=== PATIENT | male | born 1975 | race American Indian/Alaskan Native ===

== ENCOUNTER 2020-11-22 05:15 | Inpatient (IN) | payer MEDICARE ==
[2020-11-22] MEDS ORDERED: MELATONIN 5 MG TAB PO PRN (07:35)
[2020-11-22] MEDS: risperiDONE 3 MG TAB PO SCH (21:09)
[2020-11-22] MEDS: traZODone 50 MG TAB PO SCH (21:09)
[2020-11-23] MEDS: risperiDONE 3 MG TAB PO SCH ×2 (09:40→21:09)
--- NOTE | 2020-11-23 11:30 | History and Physical Report ---
GP History & Physical - History of Present Illness Date of admission: 11/22/20 Date of Examination: 11/23/20 Reason for Admission: Danger to self, Danger to others History of Present Illness: Per Admission Note: A 45 year old admitted to Rm [id number], , a/o x 4, ambulatory with steady gait admitted for argumentative behavior and having HI towards his Nephew's girlfriend Khari Lee is a 45y/o male with a history of schizophrenia, bipolar and HTN. He says he was feeling homicidal toward his nephew and his girlfriend. The patient is calm and cooperative during the visit. He didn't go into a lot of detail as to why he felt this way about his family. He says he wants to find another place to go. The patient says he drinks "4 32oc of alcohol daily." He also verbalizes "THC and nicotine." The patient says he has a history of schizophrenia and Bipolar. He says at times he hears voices, but denies at the moment. PAST PSYCHIATRIC HISTORY Diagnoses: Bipolar, schizophrenia Suicide attempts or Self-harm behavior: None reported Prior psychiatric hospitalizations: yes Substance Abuse history: alcohol, nicotine, THC Previous psychiatric medications tried: Benadryl, Risperdol and Trazodone Outpatient treatment: Yes PAST MEDICAL HISTORY: None reported Family Psychiatric History: None reported or documented SOCIAL HISTORY Marital Status: Single Living Arrangements: with nephew Employment Status: Disabled Access to guns/weapons: None reported Education: History of Abuse: None reported Legal History: None reported REVIEW OF SYSTEMS Constitutional: Negative for weight loss ENT: Negative for stridor Respiratory: Negative for cough or hemoptysis All other systems reviewed and are negative MENTAL STATUS EXAMINATION General Appearance and Behavior: Age appropriate, good hygiene, wearing appropriate clothes, good eye contact, cooperative polite with questioning. Cooperation: Participating/engaged Psychomotor Behavior: unremarkable and within normal limits Mood: Better Affect and affective range: congruent with mood Thought Process: goal directed Thought Content: hallucinations Speech: Normal volume, Regular rate and rhythm, Intellectual Functioning: Average Suicidal Ideation: Denies SI Homicidal Ideation: Yes Impulse Control: Impaired Insight and Judgment: Limited insight and judgment, Memory: Normal, Attention: Normal, Orientation: Alert, oriented Assessment (1) Schizophrenia Current Visit: Yes Status: Acute Treatment Plan Patient admitted for inpatient psychiatric evaluation, medication adjustment and close monitoring The patient's behavior, mood, sleep and appetite will be closely monitored. Patient enrolled in individual and group therapeutic sessions and encouraged to attend. Patient provided with a safe and structured environment. Patient's physical health needs will be addressed by the Hospitalist. Hospitalist Consulted Labs including CBC, CMP, Lipid profile and Hemoglobin A1C levels ordered for baseline reference Social Assessment will be completed and the Nutrition Services Aide will work with patient and family to ensure a suitable and safe disposition Medication adjustment will be made as clinically indicated Restarted meds Usual Wellness Hoahaoism/Preservation: - Start Trazodone 50 mg po QHS & 50 mg po QHS PRN between 10 PM & 2 AM for insomnia - Start Melatonin 5 mg po QHS to promote circadian rhythm - Start [place]-3 for brain health, reduce impulsivity, and as adjunctive treatment for mood disorder, continue upon discharge given overall benefits. - Start B1 prophylaxis with 200 mg po for 5 days The patient agreed on the treatment plan, understood the risk, benefit, alternative treatment, potential consequence of no treatment, and gave informed consent. Initial Certification Inpatient psych services: I certify that the inpatient psychiatric services are required for treatment that could reasonably be expected to improve the patient's condition. Estimated days: 7 Post hospital care: primary care provider, psychiatric provider Legal Status: Voluntary Reaction to Hospitalization: Accepting Medications and Allergies Allergies Allergy/AdvReac Type Severity Reaction Status Date / Time No Known Allergies Allergy Unverified 11/22/20 07:21 Home Medications Medication Instructions Recorded Confirmed Last Taken Type Tapentadol HCl [Nucynta] 50 mg PO QID PRN 11/22/20 11/22/20 Unknown History carBAMazepine [Tegretol] 300 mg PO BID 11/22/20 11/22/20 Unknown History risperiDONE [Risperdal] 3 mg PO BID 11/22/20 11/22/20 Unknown History Active Meds: Active Medications Melatonin (Melatonin 5 Mg Tab) 5 mg PO QHS PRN PRN Reason: Sleep Risperidone (Risperidone 3 Mg Tab) 3 mg PO BID [facility] Last Admin: 11/23/20 09:40 Dose: 3 mg Documented by: Trazodone HCl (Trazodone 50 Mg Tab) 50 mg PO QHS [facility] Last Admin: 11/22/20 21:09 Dose: 50 mg Documented by: Results - Results Labs/Vitals: Last Vital Signs Temp 98.1 F 11/23/20 08:09 Pulse 77 11/23/20 08:09 Resp 16 11/23/20 08:09 BP 130/73 11/23/20 08:09 Pulse Ox 100 11/23/20 08:09 Physical Examination - Constitutional Vitals: Vital Signs Temp Pulse Resp BP Pulse Ox 98.1 F 77 16 130/73 100 11/23/20 08:09 11/23/20 08:09 11/23/20 08:09 11/23/20 08:09 11/23/20 08:09 Temperature -Last 24 Hours Temperature 98.1 F Temperature 98.4 F Temperature 98.4 F Temperature 98.5 F Mental Status Exam - Vital signs Last Vital Signs Temp 98.1 F 11/23/20 08:09 Pulse 77 11/23/20 08:09 Resp 16 11/23/20 08:09 BP 130/73 11/23/20 08:09 Pulse Ox 100 11/23/20 08:09 Physician Certification - Certification Statement Physician Certification Statement: This is an acknowledgement statement that KHARI LEE is a 45 year old M who requires inpatient psychiatric admission for treatment which could reasonably be expected to improve the patient's condition for Estimated period of time patient will need to remain in the hospital: [ ] Plan for post-hospital care: [ ]
[2020-11-23] MEDS ORDERED: diphenhydrAMINE 50 MG CAP PO PRN (11:35)
[2020-11-23] MEDS: carBAMazepine 200 MG TAB PO SCH (21:09)
[2020-11-23] MEDS: traZODone 50 MG TAB PO SCH (21:09)
[2020-11-24] MEDS: carBAMazepine 200 MG TAB PO SCH ×2 (09:22→21:34)
[2020-11-24] MEDS: risperiDONE 3 MG TAB PO SCH ×2 (09:22→21:34)
--- NOTE | 2020-11-24 10:42 | Progress Note ---
Subjective Date of service: 11/24/20 Subjective Comment: The patient was seen today, he says he feels a lot better today since staring his medications. The patient denies SI/HI or hallucinations of any kind. The nurse caring for the patient today reported that the patient appeared depressed at times. Reason for continued inpatient treatment: The patient had homicidal tendencies toward nephew and girlfriend. Will continue to treat and monitor and have SW make contact with the family REVIEW OF SYSTEMS Constitutional: Negative for weight loss ENT: Negative for stridor Respiratory: Negative for cough or hemoptysis All other systems reviewed and are negative MENTAL STATUS EXAMINATION General Appearance and Behavior: Age appropriate, good hygiene, wearing appropriate clothes, good eye contact, cooperative polite with questioning. Cooperation: Participating/engaged Psychomotor Behavior: unremarkable and within normal limits Mood: Better Affect and affective range: congruent with mood Thought Process: goal directed Thought Content: hallucinations Speech: Normal volume, Regular rate and rhythm, Intellectual Functioning: Average Suicidal Ideation: Denies SI Homicidal Ideation: Yes Impulse Control: Impaired Insight and Judgment: Limited insight and judgment, Memory: Normal, Attention: Normal, Orientation: Alert, oriented Assessment (1) Schizophrenia Current Visit: Yes Status: Acute Treatment Plan Patient admitted for inpatient psychiatric evaluation, medication adjustment and close monitoring The patient's behavior, mood, sleep and appetite will be closely monitored. Patient enrolled in individual and group therapeutic sessions and encouraged to attend. Patient provided with a safe and structured environment. Patient's physical health needs will be addressed by the Hospitalist. Hospitalist Consulted Labs including CBC, CMP, Lipid profile and Hemoglobin A1C levels ordered for baseline reference Social Assessment will be completed and the Workforce Development Vice President will work with patient and family to ensure a suitable and safe disposition Medication adjustment will be made as clinically indicated Restarted meds yesterday. The patient had been off Continue current regimen Usual Wellness Mu-Ism/Preservation: - Start Trazodone 50 mg po QHS & 50 mg po QHS PRN between 10 PM & 2 AM for insomnia - Start Melatonin 5 mg po QHS to promote circadian rhythm - Start [place]-3 for brain health, reduce impulsivity, and as adjunctive treatment for mood disorder, continue upon discharge given overall benefits. - Start B1 prophylaxis with 200 mg po for 5 days The patient agreed on the treatment plan, understood the risk, benefit, alternative treatment, potential consequence of no treatment, and gave informed consent. Initial Certification Inpatient psych services: I certify that the inpatient psychiatric services are required for treatment that could reasonably be expected to improve the patient's condition. Estimated days: 7 Post hospital care: primary care provider, psychiatric provider Medications and Allergies Allergies Allergy/AdvReac Type Severity Reaction Status Date / Time No Known Allergies Allergy Unverified 11/22/20 07:21 Home Medications Medication Instructions Recorded Confirmed Last Taken Type Tapentadol HCl [Nucynta] 50 mg PO QID PRN 11/22/20 11/22/20 Unknown History carBAMazepine [Tegretol] 300 mg PO BID 11/22/20 11/22/20 Unknown History risperiDONE [Risperdal] 3 mg PO BID 11/22/20 11/22/20 Unknown History Active Meds: Active Medications Carbamazepine (Carbamazepine 200 Mg Tab) 300 mg PO BID [facility] Last Admin: 11/24/20 09:22 Dose: 300 mg Documented by: Diphenhydramine HCl (Diphenhydramine 50 Mg Cap) 50 mg PO Q6H PRN PRN Reason: Extrapyramidal Effects Melatonin (Melatonin 5 Mg Tab) 5 mg PO QHS PRN PRN Reason: Sleep Risperidone (Risperidone 3 Mg Tab) 3 mg PO BID [facility] Last Admin: 11/24/20 09:22 Dose: 3 mg Documented by: Trazodone HCl (Trazodone 50 Mg Tab) 50 mg PO QHS [facility] Last Admin: 11/23/20 21:09 Dose: 50 mg Documented by: Results - Results Labs/Vitals: Last Vital Signs Temp 98.0 F 11/24/20 08:39 Pulse 76 11/24/20 08:39 Resp 16 11/24/20 08:39 BP 111/72 11/24/20 08:39 Pulse Ox 100 11/24/20 08:39
--- NOTE | 2020-11-24 15:55 | History and Physical Report ---
History of Present Illness Date of examination: 11/24/20 Date of admission: 11/22/20 07:00 Chief complaint: Homicidal ideation History of present illness: 45-year-old -[place] male who presents with homicidal thoughts. Patient has homicidal thoughts towards his nephew and his girlfriend. Recently was incarcerated and released. Patient states that he takes risperidone but for at least 1 week he has been off his medication has been very burks. He has been staying with his nephew and things have been causing him to become very angry. Patient does admit to substance abuse. Does admit he drinks alcohol. Patient admitted to [facility] for evaluation and psychiatric treatment. Hospital service was consulted for medical management. Past History Past Medical History: other (Chronic gastritis, chronic anemia, bipolar disorder, schizophrenia, seizure disorder, mood disorder, hypertension) Past Surgical History: Other (Denies any past surgical history) Social history: other (Smokes 1 pack of cigarettes per day for last 35 years, patient has history of cocaine, crack, marijuana use) Family history: other (Diabetes mellitus type 2, hypertension) Medications and Allergies Allergies Allergy/AdvReac Type Severity Reaction Status Date / Time No Known Allergies Allergy Unverified 11/22/20 07:21 Home Medications Medication Instructions Recorded Confirmed Last Taken Type Tapentadol HCl [Nucynta] 50 mg PO QID PRN 11/22/20 11/22/20 Unknown History carBAMazepine [Tegretol] 300 mg PO BID 11/22/20 11/22/20 Unknown History risperiDONE [Risperdal] 3 mg PO BID 11/22/20 11/22/20 Unknown History Active Meds: Active Medications Carbamazepine (Carbamazepine 200 Mg Tab) 300 mg PO BID [facility] Last Admin: 11/24/20 09:22 Dose: 300 mg Documented by: Diphenhydramine HCl (Diphenhydramine 50 Mg Cap) 50 mg PO Q6H PRN PRN Reason: Extrapyramidal Effects Melatonin (Melatonin 5 Mg Tab) 5 mg PO QHS PRN PRN Reason: Sleep Risperidone (Risperidone 3 Mg Tab) 3 mg PO BID [facility] Last Admin: 11/24/20 09:22 Dose: 3 mg Documented by: Trazodone HCl (Trazodone 50 Mg Tab) 50 mg PO QHS [facility] Last Admin: 11/23/20 21:09 Dose: 50 mg Documented by: Review of Systems All systems: negative Exam - Constitutional Vitals: Temp Pulse Resp BP Pulse Ox 98.0 F 76 16 111/72 100 11/24/20 08:39 11/24/20 08:39 11/24/20 08:39 11/24/20 08:39 11/24/20 08:39 General appearance: Present: no acute distress, well-nourished - EENT Eyes: Present: PERRL ENT: hearing intact, clear oral mucosa - Neck Neck: Present: supple, normal ROM - Respiratory Respiratory effort: normal Respiratory: bilateral: CTA - Cardiovascular Heart Sounds: Present: S1 & S2. Absent: rub, click - Extremities Extremities: no ischemia, No edema, normal color, Full ROM Peripheral Pulses: within normal limits - Abdominal General gastrointestinal: Present: soft, non-tender, non-distended, normal bowel sounds - Integumentary Integumentary: Present: clear, warm, dry - Musculoskeletal Musculoskeletal: gait normal, strength equal bilaterally - Psychiatric Psychiatric: appropriate mood/affect, intact judgment & insight - Neurologic Neurologic: CNII-XII intact, moves all extremities Results Hilario/IV: Voiding Method Toilet Assessment and Plan Assessment and plan: 45-year-old -[place] male who presents with homicidal thoughts Mood disorder/homicidal thoughts Bipolar disorder Schizophrenia Psychiatry consulted Continue psychiatric medications with adjustments per psychiatry Chronic gastritis Patient without any complaints, consider PPI if necessary Chronic anemia No labs, no signs of bleeding History of seizure disorder Continue Tegretol Hypertension Patient's blood pressure is controlled. CODE STATUS: Full Disposition: Continue treatment for psychiatric mood stabilization. We will continue to follow as needed for any medical management.
[2020-11-24] MEDS: traZODone 50 MG TAB PO SCH (21:34)
[2020-11-25] MEDS: carBAMazepine 200 MG TAB PO SCH ×2 (09:28→21:11)
[2020-11-25] MEDS: risperiDONE 3 MG TAB PO SCH ×2 (09:28→21:11)
--- NOTE | 2020-11-25 10:55 | Progress Note ---
Subjective Date of service: 11/25/20 Principal diagnosis: SI Subjective Comment: The patient was seen today, he says he feels a lot better today since staring his medications. The patient denies SI/HI or hallucinations of any kind. Reason for continued inpatient treatment: The patient had homicidal tendencies toward nephew and girlfriend. Will continue to treat and monitor and have SW make contact with the family REVIEW OF SYSTEMS Constitutional: Negative for weight loss ENT: Negative for stridor Respiratory: Negative for cough or hemoptysis All other systems reviewed and are negative MENTAL STATUS EXAMINATION General Appearance and Behavior: Age appropriate, good hygiene, wearing appropriate clothes, good eye contact, cooperative polite with questioning. Cooperation: Participating/engaged Psychomotor Behavior: unremarkable and within normal limits Mood: Better Affect and affective range: congruent with mood Thought Process: goal directed Thought Content: hallucinations Speech: Normal volume, Regular rate and rhythm, Intellectual Functioning: Average Suicidal Ideation: Denies SI Homicidal Ideation: Yes Impulse Control: Impaired Insight and Judgment: Limited insight and judgment, Memory: Normal, Attention: Normal, Orientation: Alert, oriented Assessment (1) Schizophrenia Current Visit: Yes Status: Acute Treatment Plan Patient admitted for inpatient psychiatric evaluation, medication adjustment and close monitoring The patient's behavior, mood, sleep and appetite will be closely monitored. Patient enrolled in individual and group therapeutic sessions and encouraged to attend. Patient provided with a safe and structured environment. Patient's physical health needs will be addressed by the Hospitalist. Hospitalist Consulted Labs including CBC, CMP, Lipid profile and Hemoglobin A1C levels ordered for baseline reference Social Assessment will be completed and the Manager Quality Compliance will work with patient and family to ensure a suitable and safe disposition Medication adjustment will be made as clinically indicated Continue current regimen Usual Wellness Islam/Preservation: - Start Trazodone 50 mg po QHS & 50 mg po QHS PRN between 10 PM & 2 AM for insomnia - Start Melatonin 5 mg po QHS to promote circadian rhythm - Start [place]-3 for brain health, reduce impulsivity, and as adjunctive treatment for mood disorder, continue upon discharge given overall benefits. - Start B1 prophylaxis with 200 mg po for 5 days The patient agreed on the treatment plan, understood the risk, benefit, alternative treatment, potential consequence of no treatment, and gave informed consent. Initial Certification Inpatient psych services: I certify that the inpatient psychiatric services are required for treatment that could reasonably be expected to improve the patient's condition. Estimated days: 4 Post hospital care: primary care provider, psychiatric provider Medications and Allergies Allergies Allergy/AdvReac Type Severity Reaction Status Date / Time No Known Allergies Allergy Unverified 11/22/20 07:21 Home Medications Medication Instructions Recorded Confirmed Last Taken Type Tapentadol HCl [Nucynta] 50 mg PO QID PRN 11/22/20 11/22/20 Unknown History carBAMazepine [Tegretol] 300 mg PO BID 11/22/20 11/22/20 Unknown History risperiDONE [Risperdal] 3 mg PO BID 11/22/20 11/22/20 Unknown History Active Meds: Active Medications Carbamazepine (Carbamazepine 200 Mg Tab) 300 mg PO BID [facility] Last Admin: 11/25/20 09:28 Dose: 300 mg Documented by: Diphenhydramine HCl (Diphenhydramine 50 Mg Cap) 50 mg PO Q6H PRN PRN Reason: Extrapyramidal Effects Melatonin (Melatonin 5 Mg Tab) 5 mg PO QHS PRN PRN Reason: Sleep Risperidone (Risperidone 3 Mg Tab) 3 mg PO BID [facility] Last Admin: 11/25/20 09:28 Dose: 3 mg Documented by: Trazodone HCl (Trazodone 50 Mg Tab) 50 mg PO QHS [facility] Last Admin: 11/24/20 21:34 Dose: 50 mg Documented by: Results - Results Labs/Vitals: Laboratory Last Values Hemoglobin A1c 4.8 % (4-6) 11/25/20 09:37 Last Vital Signs Temp 98.3 F 11/24/20 19:39 Pulse 79 11/24/20 19:39 Resp 16 11/24/20 19:39 BP 114/74 11/24/20 19:39 Pulse Ox 100 11/24/20 19:39
[2020-11-25 11:01] LABS: Basophils # (Auto) 0.1 K/mm3 (0.0-0.1); Basophils % (Auto) 1.3 % (0.0-1.8); Eosinophils # (Auto) 0.3 K/mm3 (0.0-0.4); Eosinophils % (Auto) 6.5 % (0.0-4.3); Hematocrit 33.1 % (35.5-45.6); Hemoglobin 10.3 gm/dl (11.8-15.2); Lymphocytes # (Auto) 1.4 K/mm3 (1.2-5.4); Mean Corpuscular HGB Conc 31 % (32-34); Mean Corpuscular Volume 74 fl (84-94); Monocytes # (Auto) 0.6 K/mm3 (0.0-0.8); Monocytes % (Auto) 13.7 % (0.0-7.3); Platelet Count 262 K/mm3 (140-440); Red Blood Count 4.48 M/mm3 (3.65-5.03); Red Cell Distribution Width 15.1 % (13.2-15.2)
[2020-11-25 11:12] LABS: Alanine Aminotransferase 40 units/L (7-56); Albumin 3.7 g/dL (3.9-5); BUN/Creatinine Ratio 10; Blood Urea Nitrogen 9 mg/dL (9-20); Calcium 8.9 mg/dL (8.4-10.2); Chol/HDL Ratio 3.15 %; HDL Cholesterol 51 mg/dL (40-59); Hemolysis Index 0; LDL Cholesterol,Direct 106 mg/dL (50-130)
[2020-11-25] MEDS: traZODone 50 MG TAB PO SCH (21:11)
[2020-11-26 08:46] VITALS: BP 120/77
--- NOTE | 2020-11-26 09:36 | Discharge Summary ---
Providers - Providers Date of Admission: 11/22/20 07:00 Date of discharge: 11/26/20 Attending physician: PATRICIO DAVENPORT MD 11/22/20 07:24 Consult to Physician [CONS] Routine Comment: Consulting Provider: JAD MOODY Physician Instructions: Reason For Exam: New admssion H&P Primary care physician: SENIOR ANALYST DEVELOPER Hospitalization Reason for admission: aggression Admitting Diagnosis: F20.9 - SCHIZOPHRENIA, UNSPECIFIED Condition: Stable Hospital course: The patient was provided inpatient psychiatric treatment with safe and supportive care, medication adjustment, adverse effect monitoring, medical evaluations, medical treatments, assessment and psycho-education. The patient's mood, cognition, behavior, moral support are improved and stabilized. St the time of discharge, the patient had no endangering behavior and no debilitating adverse effects. The patient agreed on potential consequences of no treatment and gave informed consent. Disposition: DC-01 TO HOME OR SELFCARE Time spent for discharge: 38 Allergies/Adverse Reactions: Allergies No Known Allergies Allergy (Unverified 11/22/20 07:21) Vital Signs: Last Vital Signs Temp 97.8 F 11/26/20 08:26 Pulse 71 11/26/20 08:26 Resp 16 11/26/20 08:26 BP 120/77 11/26/20 08:26 Pulse Ox 100 11/26/20 08:26 Last Lab: Laboratory Last Values WBC 4.4 K/mm3 (4.5-11.0) L 11/25/20 09:37 RBC 4.48 M/mm3 (3.65-5.03) 11/25/20 09:37 Hgb 10.3 gm/dl (11.8-15.2) L 11/25/20 09:37 Hct 33.1 % (35.5-45.6) L 11/25/20 09:37 MCV 74 fl (84-94) L 11/25/20 09:37 MCH 23 pg (28-32) L 11/25/20 09:37 MCHC 31 % (32-34) L 11/25/20 09:37 RDW 15.1 % (13.2-15.2) 11/25/20 09:37 Plt Count 262 K/mm3 (140-440) 11/25/20 09:37 Lymph % (Auto) 33.0 % (13.4-35.0) 11/25/20 09:37 [place] % (Auto) 13.7 % (0.0-7.3) H 11/25/20 09:37 Eos % (Auto) 6.5 % (0.0-4.3) H 11/25/20 09:37 Baso % (Auto) 1.3 % (0.0-1.8) 11/25/20 09:37 Lymph # (Auto) 1.4 K/mm3 (1.2-5.4) 11/25/20 09:37 [place] # (Auto) 0.6 K/mm3 (0.0-0.8) 11/25/20 09:37 Eos # (Auto) 0.3 K/mm3 (0.0-0.4) 11/25/20 09:37 Baso # (Auto) 0.1 K/mm3 (0.0-0.1) 11/25/20 09:37 Seg Neutrophils % 45.5 % (40.0-70.0) 11/25/20 09:37 Seg Neutrophils # 2.0 K/mm3 (1.8-7.7) 11/25/20 09:37 Sodium 139 mmol/L (137-145) 11/25/20 09:37 Potassium 4.3 mmol/L (3.6-5.0) 11/25/20 09:37 Chloride 104.7 mmol/L (98-107) 11/25/20 09:37 Carbon Dioxide 27 mmol/L (22-30) 11/25/20 09:37 Anion Gap 12 mmol/L 11/25/20 09:37 BUN 9 mg/dL (9-20) 11/25/20 09:37 Creatinine 0.9 mg/dL (0.8-1.3) 11/25/20 09:37 Estimated GFR > 60 ml/min 11/25/20 09:37 BUN/Creatinine Ratio 10 % 11/25/20 09:37 Glucose 71 mg/dL (75-100) L 11/25/20 09:37 Hemoglobin A1c 4.8 % (4-6) 11/25/20 09:37 Calcium 8.9 mg/dL (8.4-10.2) 11/25/20 09:37 Total Bilirubin 0.20 mg/dL (0.1-1.2) 11/25/20 09:37 AST 27 units/L (5-40) 11/25/20 09:37 ALT 40 units/L (7-56) 11/25/20 09:37 Alkaline Phosphatase 86 units/L (35-129) 11/25/20 09:37 Total Protein 7.2 g/dL (6.3-8.2) 11/25/20 09:37 Albumin 3.7 g/dL (3.9-5) L 11/25/20 09:37 Albumin/Globulin Ratio 1.1 % 11/25/20 09:37 Triglycerides 80 mg/dL (2-149) 11/25/20 09:37 Cholesterol 161 mg/dL (50-199) 11/25/20 09:37 LDL Cholesterol Direct 106 mg/dL (50-130) 11/25/20 09:37 HDL Cholesterol 51 mg/dL (40-59) 11/25/20 09:37 Cholesterol/HDL Ratio 3.15 % 11/25/20 09:37 TSH 0.625 mlU/mL (0.270-4.200) 11/25/20 09:37 Core Measure Documentation - Palliative Care Palliative Care/ Comfort Measures: Not Applicable - Core Measures Any of the following diagnoses?: none Exam - Constitutional Vitals: Temp Pulse Resp BP Pulse Ox 97.8 F 71 16 120/77 100 11/26/20 08:26 11/26/20 08:26 11/26/20 08:26 11/26/20 08:26 11/26/20 08:26 General appearance: Present: no acute distress - EENT Eyes: Present: PERRL, EOM intact ENT: hearing intact, clear oral mucosa - Neck Neck: Present: normal ROM - Respiratory Respiratory effort: normal Plan Activity: advance as tolerated Weight Bearing Status: Weight Bear as Tolerated Care Plan Goals: Maintain good and stable mental health Plan of Treatment: The patient should be compliant with medications, not to use drugs, and not to drink alcohol. The patient understands that if suicidal ideas, homicidal ideas or any endangering feeling arise, the patient should seek assistance including, but not limited to crisis hotline, and emergency room. Assessment: Schizophrenia Follow up with: PRIMARY CARE, [Primary Care Provider] - 7 Days Prescriptions: traZODone [Desyrel] 50 mg PO QHS #30 tablet Melatonin [Melatonin 5MG TAB] 5 mg PO QHS PRN #30 tablet PRN Reason: Sleep risperiDONE [Risperdal] 3 mg PO BID #60
[2020-11-26] MEDS: carBAMazepine 200 MG TAB PO SCH (10:41)
[2020-11-26] MEDS: risperiDONE 3 MG TAB PO SCH (10:41)
== END 2020-11-26 16:25 | disposition home or self-care (01) | DRG 885 ==
LOC: UNDOADMIN 05:15 → 3A 05:15 → 5A 07:00
PROVIDERS: ADMIT Psychiatry & Neurology Psychiatry; ATTEND Psychiatry & Neurology Psychiatry
DX: F20.9 Schizophrenia, unspecified (principal); I10 Essential (primary) hypertension; F17.210 Nicotine dependence, cigarettes, uncomplicated; R45.850 Homicidal ideations; G40.909 Epilepsy, unspecified, not intractable, without status epilepticus; F31.9 Bipolar disorder, unspecified; D64.9 Anemia, unspecified; K29.50 Unspecified chronic gastritis without bleeding; Z83.3 Family history of diabetes mellitus; Z82.49 Family history of ischemic heart disease and other diseases of the circulatory system
CPT/HCPCS: 36415; 80053; 80061; 83036; 84443; 85025; G0378